=== PATIENT | female | born 1965 | race Caucasian/White ===

== ENCOUNTER 2016-08-09 07:16 | Emergency (ER) | payer OTHER ==
[~2016-08-09] VITALS: Ht 154.9 cm; Wt 119.0 kg
[~2016-08-09 07:16] MED LIST: GLUCTAB PO; LISI10TA PO; NAPR40TA PO; ZOVI800T13 PO
[2016-08-09 07:26] VITALS: BP 132/81; PULSE 95; RESP 16; TEMP 98.5; O2SAT 98
[2016-08-09] MEDS ORDERED: LISI10TA PO (07:34)
[2016-08-09] MEDS ORDERED: METF1000 PO (07:34)
[2016-08-09] MEDS ORDERED: DEXAMETHASONE SOD PHOS 20 MG/5 ML VIAL IM ONE (08:00)
[2016-08-09] MEDS ORDERED: KETOROLAC TROMETHAMINE 60 MG/2 ML (IM) VIAL IM ONE (08:00)
[2016-08-09] MEDS ORDERED: DIAZ5 PO (08:20)
[2016-08-09] MEDS ORDERED: IBUP-232 PO (08:20)
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
[2016-08-09 09:11] VITALS: RESP 16
== END 2016-08-09 09:25 | disposition home or self-care (01) ==
LOC: PHEFT 07:16
DX: S13.4XXA Sprain of ligaments of cervical spine, initial encounter (principal); S16.1XXA Strain of muscle, fascia and tendon at neck level, initial encounter; R22.1 Localized swelling, mass and lump, neck; J45.909 Unspecified asthma, uncomplicated; I10 Essential (primary) hypertension; E11.9 Type 2 diabetes mellitus without complications; V49.49XA Driver injured in collision with other motor vehicles in traffic accident, initial encounter
CPT/HCPCS: 72125; 96372; 99284; J1100; J1885; L0150